=== PATIENT | female | born 1995 | race African-American/Black ===

== ENCOUNTER 2016-12-21 21:16 | Emergency (ER) | payer OTHER ==
[~2016-12-21] VITALS: Ht 162.6 cm; Wt 84.2 kg
[~2016-12-21 21:16] MED LIST: AMOXICILLIN500 M1 PO; Claritin,Alavart PO; Depo-Provera IM; ENULOSE10 GM/15 M PO; ERYTHROMYCIN-23.6 GM TP; FERROUS SULFAT325 MG PO; FLUTICASONE PRO16 GM BOTH NARES; MOTRIN600 MG PO; MUPIROCIN22 GM TP; NAPROSYN375 MG PO; NAPROSYN500 MG PO; TRETINOIN45 GM TP; ULTRAM50 MG PO
[2016-12-21 22:19] LABS: EOSINOPHIL (%) 0.8 % (0-5); EOSINOPHIL COUNT 0.1 K/uL (0-0.3); HEMATOCRIT 36.7 % (36.0-46.0); IMMATURE GRANULOCYTE (%) 0.2 % (0.0-0.7); INSTRUMENT ABS NEUTROPHIL CT 4.3 K/uL; LYMPHOCYTE COUNT 1.7 K/uL (1.0-2.8); MCH 28.2 PG (29.0-34.0); MCHC 33.8 G/DL (30.0-36.0); MCV 83.4 FL (83-99); MEAN PLAT.VOLUME 9.1 uM^3 (9.5-12.4); MONOCYTE (%) 8.3 % (3-12); MONOCYTE COUNT 0.6 K/uL (0-0.8); NEUTROPHIL (%) 64.9 % (45-76); NEUTROPHIL COUNT 4.3 K/uL (1.8-6.4); PLATELET COUNT 258 K/uL (156-360); RBC DIS.WIDTH-CV 12.9 % (11.8-14.6); RBC DIS.WIDTH-SD 39.4 % (39-53); WHITE BLOOD COUNT 6.6 K/uL (4.1-10.2)
[2016-12-21 22:32] LABS: CHLORIDE 107 mEq/L (99-109); POTASSIUM 3.9 mEq/L (3.7-5.4); SODIUM 138 mEq/L (136-147)
[2016-12-21 22:34] LABS: GLUCOSE 100 mg/dL (70-99)
[2016-12-21 22:35] LABS: ANION GAP 7 MEQ/L (2-14)
[2016-12-21 22:36] LABS: TOTAL BILIRUBIN 0.2 mg/dL (0.0-1.0)
[2016-12-21 22:37] LABS: ALKALINE PHOSPHATASE 48 IU/L (3-129)
[2016-12-21 22:38] LABS: GFR ESTIMATE (CALCULATED) > 59 mL/min/
[2016-12-21 22:39] LABS: UREA NITROGEN (BUN) 11 mg/dL (9-23)
[2016-12-21 22:41] LABS: LIPASE 48 U/L (1.0-51.0)
[2016-12-21 22:46] LABS: QUANTITATIVE HCG < 4.0 MIU/ML
[2016-12-21 23:45] LABS: ADD MIUA? NO; BILIRUBIN NEGATIVE; BLOOD NEGATIVE; COLOR YELLOW ((YELLOW)); GLUCOSE (STRIP) NEGATIVE; KETONES NEGATIVE; LEUKOCYTES NEGATIVE; NITRITE NEGATIVE; PROTEIN (STRIP) NEGATIVE; SPECIFIC GRAVITY 1.011 (1.000-1.030); UROBILINOGEN 0.2 MG/DL (0.2-1.0)
[2016-12-22] MEDS ORDERED: INDOCIN50 MG PO (00:59)
[2016-12-22 01:17] VITALS: BP 134/77
[2016-12-23 11:56] LABS: CHLAMYDIA TRACHOMATIS NEGATIVE; NEISSERIA GONORRHOEAE NEGATIVE
== END 2016-12-22 01:18 | disposition home or self-care (01) ==
LOC: RME 21:16 → EME 21:16 → RME 12-22 01:18
PROVIDERS: Physician Assistant
DX: R10.2 Pelvic and perineal pain (principal); R10.31 Right lower quadrant pain; R91.8 Other nonspecific abnormal finding of lung field
CPT/HCPCS: 74177; 80053; 81003; 83690; 84702; 85025; 87210; 87491; 87591; 99281; 99285; J0696; J7030

== ENCOUNTER 2017-07-19 00:19 | Emergency (ER) | payer OTHER ==
[~2017-07-19] VITALS: Ht 162.6 cm; Wt 85.7 kg
[~2017-07-19 00:19] MED LIST changes: +INDOCIN50 MG PO
[2017-07-19 00:45] LABS: APPEARANCE CLEAR ((CLEAR)); BILIRUBIN NEGATIVE; BLOOD NEGATIVE; COLOR STRAW ((YELLOW)); GLUCOSE (STRIP) NEGATIVE; KETONES NEGATIVE; LEUKOCYTES NEGATIVE; NITRITE NEGATIVE; PROTEIN (STRIP) NEGATIVE; SPECIFIC GRAVITY 1.013 (1.000-1.030); UCUL ADDED? NO; UROBILINOGEN 0.2 MG/DL (0.2-1.0)
[2017-07-19 01:29] LABS: HEMATOCRIT 37.7 % (36.0-46.0); MCH 28.6 PG (29.0-34.0); MCHC 34.5 G/DL (30.0-36.0); PLATELET COUNT 255 K/uL (156-360); RBC DIS.WIDTH-CV 12.6 % (11.8-14.6); RED BLOOD COUNT 4.54 M/uL (3.80-5.20); WHITE BLOOD COUNT 5.6 K/uL (4.1-10.2)
[2017-07-19 01:39] LABS: ALBUMIN 4.1 g/dL (3.2-4.8); CHLORIDE 109 mEq/L (99-109)
[2017-07-19 01:40] LABS: SODIUM 136 mEq/L (136-147)
[2017-07-19 01:42] LABS: GLUCOSE 100 mg/dL (70-99); TOTAL PROTEIN 8.5 g/dL (6.4-8.3)
[2017-07-19 01:44] LABS: TOTAL BILIRUBIN 0.2 mg/dL (0.0-1.0)
[2017-07-19 01:45] LABS: ALKALINE PHOSPHATASE 48 IU/L (3-129); CREATININE 0.7 mg/dL (0.6-1.3); GFR ESTIMATE (CALCULATED) > 59 mL/min/
[2017-07-19 01:47] LABS: AST (GOT) 24 IU/L (2-34); UREA NITROGEN (BUN) 9 mg/dL (9-23)
[2017-07-19 01:48] LABS: ALT (GPT) 17 IU/L (3-49)
[2017-07-19 01:55] LABS: QUANTITATIVE HCG < 4.0 MIU/ML
[2017-07-19 05:39] VITALS: BP 137/87
== END 2017-07-19 05:40 | disposition home or self-care (01) ==
LOC: EME 00:19
DX: R10.31 Right lower quadrant pain (principal)
CPT/HCPCS: 80053; 81003; 84702; 85027; 99281; 99283